=== PATIENT | female | born 1980 | race Caucasian/White ===

== ENCOUNTER 2016-12-30 13:48 | Emergency (ER) | payer MEDICAID ==
[~2016-12-30] VITALS: Wt 65.9 kg
[~2016-12-30 13:48] MED LIST: IBUP-1542 PO; ONDA4TAB8 PO
[2016-12-30 14:57] LABS: URINE BLOOD (Dip) POC Negative (NEGATIVE)
--- NOTE | 2016-12-30 15:29 | RADRPT ---
PROCEDURE: XR Right Ankle. CLINICAL INDICATION: Right ankle pain. TECHNIQUE: 3 views. Frontal, lateral, and oblique. COMPARISON: None. FINDINGS: There is no fracture or dislocation. The soft tissues are normal. The articular surfaces are intact. There is a small posterior calcaneal spur. There is no lytic or blastic lesion. There is no radiopaque foreign body. IMPRESSION: 1. Small posterior calcaneal spur. 2. Otherwise normal images of the right ankle. RPTAT: QQ .Sandoval Bustamante MD, MD Date Time Electronically viewed and signed by .Sandoval Bustamante MD, MD on 12/30/2016 15:28 .R/
--- NOTE | 2016-12-30 15:29 | RADRPT ---
PROCEDURE: XR Left Ankle. CLINICAL INDICATION: Left ankle pain. TECHNIQUE: 3 views. Frontal, lateral, and oblique. COMPARISON: None. FINDINGS: There is no fracture or dislocation. The soft tissues are normal. Articular surfaces are intact. There is no lytic or blastic lesion. There is no radiopaque foreign body. IMPRESSION: 1. Normal images of the left ankle. RPTAT: QQ .Sandoval Bustamante MD, MD Date Time Electronically viewed and signed by .Sandoval Bustamante MD, on 12/30/2016 15:29 .R/
--- NOTE | 2016-12-30 15:51 | RADRPT ---
PROCEDURE: CT Lumbar Spine without contrast. CLINICAL INDICATION: Lower back pain. TECHNIQUE: Noncontrast CT of the lumbar spine was performed with multiplanar reformatted images gen erated from the axial acquired data. The administered radiation dose was CTDI vol = 16.74 mGy, DLP = 376.92 mGy-cm. One or more of the following dose reduction techniques were used: Automated exposur e control, Adjustment of the mA and/or kV according to patient size, or Use of iterative reconstruct ion technique. COMPARISON: There are no similar studies submitted for comparison. 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 Please ref er to imaging prior to any surgical intervention. There are prominent bilateral L5 transverse proces s with complete stabilization of the left and near complete sacralization on the right There is normal lumbar lordosis. The vertebral body heights are maintained. There is normal alignment. There is no destructive osseous lesion. There is no acute fracture. T12-L1 : There is no disc herniation, spinal canal, or foraminal stenosis. L1-L2 : There is no disc herniation, spinal canal, or foraminal stenosis. L2-L3 : There is no disc herniation, spinal canal, or foraminal stenosis. L3-L4 : There is a 1 mm broad-based disk bulge without spinal canal stenosis. There is no bilateral foraminal stenosis. There is mild disk space narrowing. L4-L5 : There is a 2 mm circumferential disk bulge with a 2 mm central disk protrusion with moderate bilateral facet arthropathy and ligamentum flavum infolding causing mild to moderate spinal canal s tenosis. There is mild bilateral foraminal stenosis. L5-S1 : There is a rudimentary disk without spinal canal stenosis. There is mild bilateral facet ar thropathy with congenital mild to moderate spinal canal stenosis. There is no bilateral foraminal st enosis. The sacroiliac joints are intact. There are prominent right sacroiliac joint osteophytes. 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 Please ref er to imaging prior to any surgical intervention. 1. No acute fracture. 2. Multilevel degenerative changes most pronounced at L4-5 where there is a circumferential disk bul ge with a 2 mm central disk protrusion with mild to moderate spinal canal stenosis. There is mild b ilateral foraminal stenosis. Further findings as detailed above. RPTAT: PP .Raul Turner MD, MD Date Time Electronically viewed and signed by .Raul Turner MD, MD on 12/30/2016 15:50 .F/
[2016-12-30] MEDS ORDERED: IBUP-1542 PO (16:24)
[2016-12-30] MEDS ORDERED: PRED20TA PO (16:25)
--- NOTE | 2016-12-30 16:40 | ERD ---
ER Documentation Chief Complaint Date/Time DATE: 12/30/16 TIME: 16:33 Chief Complaint back pain, foot pain HPI This is a 36-year-old female presents to the ER with lower back pain that is been going on for the last 5 years. Patient states that back pain is severe and constant it is worse whenever she lays down and worse in the morning after she is kneeling down night. Patient states that back pain is intermittent, she has not tried any medication for the pain. Patient denies any fevers or chills. She denies any trauma. Patient is also complaining of bilateral ankle pain which is been going on for years as well. She denies any ankle trauma. Patient denies any numbness or tingling of her lower extremities. She denies any urinary bowel incontinence. She denies any saddle like anesthesia. She denies any IV drug use. ROS 12 point review of systems was done, all negative except per HPI. Medications Home Meds Active Scripts Prednisone* (Prednisone*) 20 Mg Tab, 60 MG PO DAILY for 5 Days, TAB Prov:HILDA ADAM 12/30/16 Ibuprofen* (Motrin*) 600 Mg Tab, 600 MG PO Q6, #30 TAB Prov:HILDA ADAM 12/30/16 Ondansetron Hcl* (Zofran*) 4 Mg Tablet, 4 MG PO Q6H for NAUSEA AND/OR VOMITING, #30 TAB Prov:ROSENDO SCANLON P STOCK PREPARATION OPERATOR 03/14/16 Ibuprofen* (Motrin*) 600 Mg Tab, 600 MG PO Q6H Y for PAIN AND OR ELEVATED TEMP, #30 TAB Prov:ROSENDO SCANLON P STOCK PREPARATION OPERATOR 03/14/16 Allergies Allergies: Coded Allergies: No Known Allergy (Unverified , 03/14/16) PMhx/Soc Medical and Surgical Hx: pt denies Medical Hx, pt denies Surgical Hx Hx Alcohol Use: No Hx Substance Use: No Hx Tobacco Use: No Smoking Status: Never smoker Physical Exam Vitals Vital Signs Date Time Temp Pulse Resp B/P Pulse Ox O2 Delivery O2 Flow Rate FiO2 12/30/16 14:05 98.7 102 20 133/94 98 Physical Exam GENERAL: The patient is well developed and appropriate for usual state of health , in no apparent distress. NECK: C-spine is soft and supple. There is no cervical lymphadenopathy. CHEST: Clear to auscultation bilaterally. There are no rales, wheezes or rhonchi. HEART: Regular rate and rhythm. No murmurs, clicks, rubs or gallops. ABDOMEN: Soft, nontender and nondistended. Good bowel sounds. No rebound or guarding. No gross peritonitis. No gross organomegaly or masses. No Diaz sign or McBurney point tenderness. No pulsatile abdominal mass. BACK: Patient is seated on stretcher without obvious distress. There is no trauma. There is no abrasion scars, ecchymosis, lacerations. No STS or muscle tenderness to palpation no spasm or mass no PT, step-off or deformity of the bony cervical thoracic or lumbar spine to firm palpation at the midline. Patient is tender to palpation along paraspinal muscles. No CVA tenderness to percussion no SI notch tenderness no saddle anesthesia. Range of motion-- patient able to stand normal flexion, extension, lateral bending and rotation without limitation or complaint of pain. Dorsi and plantarflexion with adequate strength. Good dorsalis pedal pulses and posterior tibial pulse. Sensation to light touch is intact at the great webspace. Patient has full range of motion of bilateral ankles with no tenderness to palpation to the lateral or medial malleoli. No foot drop. NEURO: Alert and oriented. Results 24 hrs Laboratory Tests Test 12/30/16 15:01 Bedside Urine pH (LAB) 5.5 Bedside Urine Protein (LAB) Negative Bedside Urine Glucose (UA) Negative Bedside Urine Ketones (LAB) Negative Bedside Urine Blood Negative Bedside Urine Nitrite (LAB) Negative Bedside Urine Leukocyte Esterase (L Trace Procedures/MDM Differential Diagnosis includes but is not limited to back strain, vertebral fracture, epidural abscess, cauda equina, herniated disc, AAA rupture, kidney stones, UTI, pyelonephritis. Patient does have some bulging disks this is likely the cause of her pain. At this time patient has had pain for 5 years is likely acute on chronic pain. Patient has full range of motion of her lower extremities and does not have any neurovascular compromise. She is comfortable and does not have any pain at the time. Suspicion for infectious etiology is low, patient is afebrile and well-appearing. I doubt cauda equina or epidural abscess. Patient will be sent with ibuprofen with a short course of steroids. She urgently needs to follow-up with her primary care doctor within 1 to days return to ER sooner if symptoms worsen. My medical decision making shared with the patient she understands and agrees with plan. Departure Diagnosis: Primary Impression: Back pain Condition: Stable Patient Instructions: Back Pain (Acute Or Chronic) [facility] Usted se murillo hecho un examen mdico de control que le indica que no est en mookie condicin que requiera tratamiento urgente en el Departamento de Emergencia. Un estudio ms profundo y el tratamiento de ulloa condicin pueden esperar sin ningn riesgo hasta que usted sea atendida/o en el consultorio de ulloa mdico o mookie cl mc. Es responsabilidad suya arreglar mookie esthela para el seguimiento del cheng. MANEJO DE CONDICIONES NO URGENTES EN EL FUTURO 1) Si usted tiene un mdico de atencin primaria: Usted debera llamar a ulloa mdico de atencin primaria antes de venir al departamento de emergencia. Despus de las horas de consultorio, ulloa doctor o ulloa asociado/a est disponible por telfono. El mdico o enfermero de kim en el servicio telefnico puede asesorarle por kimberlyn medio para atender el problema, o cheng contrario se puede programar mookie esthela. 2) Si usted no tiene un mdico de atencin primaria: Llame al mdico o clnica de referencia que aparece abajo na las horas de consultorio para hacer mookie esthela para que le vean. CLINICAS: [facility] [phone] [facility] [phone] [facility] [phone] [facility]. [facility] [phone] [facility]. [facility] [phone] [facility]. [phone] [address] Additional Instructions: Llame al doctor MAANA y conrad mookie ESTHELA PARA DENTRO DE 1-2 LIAO.Dgale a la secretaria que nosotros le instruimos hacer esta esthela.Avise o llame si ulloa condicin se empeora antes de la esthela. Regresa aqui si peor o no mejor. HILDA ADAM Dec 30, 2016 16:39
== END 2016-12-30 16:40 | disposition home or self-care (01) ==
LOC: FTE 13:48
DX: M54.5 Low back pain (principal)
CPT/HCPCS: 72131; 73610; 81003